=== PATIENT | female | born 1990 | race Caucasian/White ===

== ENCOUNTER 2019-01-22 07:37 | Day surgery (SDC) | payer SELFPAY ==
[~2019-01-22 07:37] MED LIST: Dexamethasone 4 MG/ML 5 ML MDV ONE; Lactated Ringers 1,000 ML IV SCH; Lidocaine 1%/Sod Bicarbonate in NS 8.4% 1 ML Syringe IDERM PRN; Midazolam 1 MG/ML 2 ML SDV ONE; Ondansetron 4 MG/2 ML SDV ONE; Propofol 200 MG/20 ML SDV ONE; Rocuronium 50 MG/5 ML Vial ONE; Sodium Chloride 0.9% 10 ML Syringe FLUSH PRN; ceFAZolin 1 GM Vial ONE; fentaNYL 250 MCG/5 ML SDV ONE
[2019-01-22] MEDS ORDERED: Bupivacaine 0.5% 10 ML SDV ONE (07:53)
--- NOTE | 2019-01-22 07:54 | PCM.PREANE ---
Preanesthetic Assessment - Anesthesia/Transfusion/Family Hx Anesthesia History: Prior Anesthesia Without Reaction Family History of Anesthesia Reaction: No Transfusion History: No Prior Transfusion(s) - Review of Systems General: Other (obese with BMI of 39, just getting over a cold, still having a stuffy nose) Pulmonary: No Symptoms Cardiovascular: No Symptoms Gastrointestinal: No Symptoms Neurological: No Symptoms Other: Reports: Depression (post ) - Physical Assessment NPO Status Date: 01/21/19 NPO Status Time: 18:30 Weight: 92.533 kg ASA Class: 2 Mental Status: Alert & Oriented x3 Airway Class: Mallampati = 2 Dentition: Reports: Normal Dentition Thyro-Mental Finger Breadths: 3 Mouth Opening Finger Breadths: 3 ROM/Head Extension: Full Lungs: Clear to Auscultation, Normal Respiratory Effort Cardiovascular: Regular Rate, Regular Rhythm - Allergies Allergies/Adverse Reactions: Allergies Allergy/AdvReac Type Severity Reaction Status Date / Time doxycycline Allergy Hives Verified 01/21/19 08:56 Sulfa (Sulfonamide Allergy Hives Verified 01/21/19 08:56 Antibiotics) sulfamethoxazole Allergy Hives Verified 01/21/19 08:56 [From Bactrim] trimethoprim [From Bactrim] Allergy Hives Verified 01/21/19 08:56 - Blood Blood Available: No Product(s) Available: None - Anesthesia Plan Pre-Op Medication Ordered: None - Acknowledgements Anesthesia Type Planned: General Anesthesia Pt an Appropriate Candidate for the Planned Anesthesia: Yes Alternatives and Risks of Anesthesia Discussed w Pt/Guardian: Yes Pt/Guardian Understands and Agrees with Anesthesia Plan: Yes PreAnesthesia Questionnaire HEENT History: Reports: None Cardiovascular History: Reports: Hypertension, Other (See Below) Other Cardiovascular History: PREECLAMPSIA Respiratory History: Reports: None Gastrointestinal History: Reports: None Genitourinary History: Reports: None 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: Other OB/BYN History: , PREECLAMPSIA, FIBROCYSTIC BREAST Neurological History: Reports: None Psychiatric History: Reports: Depression, Other (See Below) Other Psychiatric History: DEPRESSION Endocrine/Metabolic History: Reports: None Hematologic History: Reports: None Immunologic History: Reports: None Oncologic (Cancer) History: Reports: None Dermatologic History: Reports: None - Past Surgical History Head Surgeries/Procedures: Reports: None HEENT Surgical History: Reports: Adenoidectomy, Oral Surgery, Tonsillectomy Cardiovascular Surgical History: Reports: None Respiratory Surgical History: Reports: None GI Surgical History: Reports: None Female Surgical History: Reports: None Male Surgical History: Reports: None Endocrine Surgical History: Reports: None Neurological Surgical History: Reports: None Musculoskeletal Surgical History: Reports: Carpal Tunnel Other Musculoskeletal Surgeries/Procedures:: worse on left Oncologic Surgical History: Reports: None Dermatological Surgical History: Reports: None - SUBSTANCE USE Smoking Status *Q: Never Smoker Recreational Drug Use History: No - CURRENT (IN HOUSE) MEDS Current Meds: Current Medications Lactated Ringer's (Ringers, Lactated) 1,000 mls @ 125 mls/hr IV ASDIRECTED LUIS EDUARDO Stop: 01/22/19 23:00 Influenza Virus Vaccine (Pharmacy To Dose - Influenza Vaccine) 0 each IM ONETIME ONE Stop: 01/22/19 09:01 Influenza Virus Vaccine (Fluzone Quad [id number] Syringe) 60 mcg IM .ONCE ONE Stop: 01/22/19 12:01 Lidocaine/Sodium Bicarbonate (Buffered Lidocaine 1% In Ns 8.4%) 0.25 ml IDERM ONETIME PRN PRN Reason: Prior to IV Start Stop: 01/22/19 18:00 Sodium Chloride (Saline Flush) 10 ml FLUSH ASDIRECTED PRN PRN Reason: Keep Vein Open Stop: 01/22/19 18:00 Discontinued Medications Cefazolin Sodium (Ancef) Confirm Administered Dose 2 gm .ROUTE .STK-MED ONE Stop: 01/22/19 07:03 Dexamethasone (Dexamethasone) Confirm Administered Dose 20 mg .ROUTE .STK-MED ONE Stop: 01/22/19 07:03 Fentanyl (Sublimaze) Confirm Administered Dose 250 mcg .ROUTE .STK-MED ONE Stop: 01/22/19 07:04 Midazolam HCl (Versed 1 Mg/Ml) Confirm Administered Dose 2 mg .ROUTE .STK-MED ONE Stop: 01/22/19 07:04 Ondansetron HCl (Zofran) Confirm Administered Dose 4 mg .ROUTE .STK-MED ONE Stop: 01/22/19 07:03 Propofol (Diprivan 20 Ml) Confirm Administered Dose 200 mg .ROUTE .STK-MED ONE Stop: 01/22/19 07:04 Rocuronium Crenshaw (Zemuron) Confirm Administered Dose 50 mg .ROUTE .STK-MED ONE Stop: 01/22/19 07:03
--- NOTE | 2019-01-22 08:06 | PCM.OPNOTE ---
- General Post-Op/Procedure Note Date of Surgery/Procedure: 01/22/19 Operative Procedure(s): Laparoscopic removal of right adnexal cyst (appeared to be origininating inferior to fallopian tube, did not seem to connect with ovary ) and right salpingectomy Findings: Laparoscopic evaluation shows a large, at least 10 cm, fluid filled cyst filling the pelvis. Initially very difficult to tell where cyst originating. Once drained it was able to be seen that ovary is separate from cyst cavity. Cyst cavity inferior to fallopian tube and distorting/involving fallopian tube and fimbriae. Normal appearance of right ovary. Normal appearance of the left fallopian tube and ovary. Normal appearance of the uterus. Pre Op Diagnosis: Adnexal cyst Post-Op Diagnosis: Adnexal cyst- appears to be paratubal cyst Anesthesia Technique: General ET Tube Primary Surgeon: Xochitl Mcfarland Secondary Surgeon: Nneka Diane Anesthesia Provider: Kaitlin Brito Reason Compound Filler Was Necessary: BMI of patient. Speed/safety of procedure. Pathology: Cyst wall/cavity and right fallopian tube sent to pathology for further evaluation Fluid Replacement, Intraop: 1,600 Output, Urine Amount: 160 EBL in mLs: 10 Complications: None Condition: Good Free Text/Narrative:: The risks, benefits, indications, potential complications, and alternatives were explained to the patient and informed consent obtained. The patient was taken to the Operating Room where general anesthesia was induced without complication. The patient was placed in dorsal lithotomy with Logan Stirrups. The patient was then prepped and draped in the usual sterile fashion. A sterile bivalve speculum was placed into the vagina and the anterior lip of the cervix was grasped with a single tooth tenaculum. A Vigilent uterine manipulator was then advanced into the cervix and attached to the cervix to allow uterine manipulation throughout the procedure. The single tooth tenaculum and speculum were removed from the vagina. Catheter placed into the bladder. Attention was then turned to the patients abdomen where a Veress needle was inserted into the abdomen while tenting the abdominal wall. Intraabdominal placement was confirmed with a drop test using a saline filled syringe and low intraabdominal pressure on low flow. A vertical infraumbilical incision was made in the umbilical fold and the 5 mm blunt trocar was inserted with the 5 mm laparoscope inserted through the trocar for direct visualization of abdominal entry through the clear view lens. Once intraabdominal placement was confirmed, the blunt obturator was removed and the laparoscope was inserted and exam of the patient's abdomen revealed the findings detailed above. The patient was placed in Trendelenburg position. Attention was turned to placement of the accessory ports. Both ports were placed approximately 10 cm lateral and 2-3 cm below the level of the first incision. A 5 mm skin incision was made in the left lower quadrant and a 5 mm trocar was inserted into the abdomen under direct visualization with care to avoid the abdominal wall vasculature. A 10 mm skin incision in the right lower quadrant. A 10 mm trocar was inserted into the abdomen under direct visualization with care to avoid the abdominal wall vasculature. Adnexal cyst noted to be filling the pelvis. Not able to manipulate to determine origin. Not able to see surrounding gynecologic structures. Cautery pen used to make line across cyst releasing about 300 cc of clear fluid. After this was done could see that there was normal appearance of the right ovary and that cyst seemed to be inferior to fallopian tube and distorting fallopian tube/ fimbria. Initially LigaSure used to cauterize and open cyst cavity in attempt to preserve fallopian tube. This was unsuccessful given distortion and involvement of fimbria. Given concern for abnormal appearance of tube, inability to separate cyst from fallopian tube without significant trauma, and concern fallopian tube would cause increased risk of ectopic decision made to remove fallopian tube along with cyst. LigaSure used to cauterize and transect along the mesosalpinx from fimbria to the uterine cornua. Once fallopian tube and cyst free from surrounding structures they were taken out in a piecemeal fashion from the 10 mm port. Hemostasis noted of dissection site. Next, 10 mm port removed and the garima parry inlet closure device was inserted into the abdomen. Fascia of the 10 mm port closed with an interrupted suture of 0 Vicryl. The left lower quadrant trocar was then removed under direct visualization. The pneumoperitoneum was allowed to escape. The umbilical trocar was removed and lastly the camera was removed from the abdomen under direct visualization to confirm no herniation into the port site. 0.25% Marcaine was injected into the subcutaneous tissue of all skin incisions for local anesthesia. The skin incisions were re-approximated with 4-0 Monocryl in a running subcuticular fashion and sealed with Dermabond. Vigilent manipulator then removed. Polyp forceps placed into the cervical canal in attempt to remove potential polyp noted on the ultrasound. No polyp encountered. Silver nitrate applied to [place] site for hemostasis. Catheter them removed as well. The patient was awakened and taken to the Recovery Room in stable condition.
[2019-01-22] MEDS ORDERED: Lactated Ringers 1,000 ML ONE (08:07)
[2019-01-22] MEDS ORDERED: Ketorolac 30 MG/ML SDV ONE (08:08)
[2019-01-22] MEDS ORDERED: HYDROmorphone 0.5 MG/0.5 ML Syringe ONE (08:44)
[2019-01-22] MEDS ORDERED: Neostigmine Methylsulfate 1 MG/ML 5 ML Syringe ONE (09:00)
[2019-01-22] MEDS ORDERED: fentaNYL 100 MCG/2 ML SDV ONE (09:30)
[2019-01-22] MEDS ORDERED: fentaNYL 100 MCG/2 ML SDV IVPUSH PRN (10:15)
[2019-01-22] MEDS ORDERED: HYDROmorphone 0.5 MG/0.5 ML Syringe IVPUSH PRN (10:15)
--- NOTE | 2019-01-22 10:15 | PCM.POSTAN ---
POST ANESTHESIA ASSESSMENT - MENTAL STATUS Mental Status: Alert, Oriented - VITAL SIGNS Vital Signs: Last Vital Signs Temp 36.9 C 01/22/19 07:45 Pulse 92 01/22/19 07:45 Resp 16 01/22/19 07:45 BP 149/84 H 01/22/19 07:45 Pulse Ox 98 01/22/19 07:45 - RESPIRATORY Respiratory Status: Respiratory Rate WNL, Airway Patent, O2 Saturation Stable, Supplemental Oxygen - CARDIOVASCULAR CV Status: Pulse Rate WNL, Blood Pressure Stable - GASTROINTESTINAL GI Status: No Symptoms - PAIN Pain Score: 0 - POST OP HYDRATION Hydration Status: Adequate & Stable
[2019-01-22] MEDS ORDERED: Acetaminophen/HYDROcodone 325-5 MG Tab PO PRN (11:17)
--- NOTE | 2019-01-22 11:39 | PCM48HPAN ---
Post Anesthesia Note - EVALUATION WITHIN 48HRS OF ANESTHETIC Vital Signs in Normal Range: Yes Patient Participated in Evaluation: Yes Respiratory Function Stable: Yes Airway Patent: Yes Cardiovascular Function Stable: Yes Hydration Status Stable: Yes Pain Control Satisfactory: Yes Nausea and Vomiting Control Satisfactory: Yes Mental Status Recovered: Yes Vital Signs: Last Vital Signs Temp 36.3 C 01/22/19 11:00 Pulse 63 01/22/19 11:30 Resp 16 01/22/19 11:30 BP 121/73 01/22/19 11:30 Pulse Ox 97 01/22/19 11:30
[2019-01-22] MEDS ORDERED: FLU Vacc QS2019-20(6MOS+)/PF 60 MCG/0.5 ML SYRINGE IM ONE ×2 (11:55→12:00)
[2019-01-22 13:47] VITALS: BP 122/83; PULSE 72
== END 2019-01-22 13:05 | disposition home or self-care (01) ==
LOC: JD.SDS 07:37
PROVIDERS: ATTEND Obstetrics & Gynecology
DX: D28.2 Benign neoplasm of uterine tubes and ligaments (principal); I10 Essential (primary) hypertension; E66.9 Obesity, unspecified; Z68.38 Body mass index [BMI] 38.0-38.9, adult; Z88.2 Allergy status to sulfonamides; Z88.1 Allergy status to other antibiotic agents
CPT/HCPCS: 36415; 58662; 80048; 81025; 85025; 86850; 86900; 86901; 90471; 90686; J1100; J1170; J1885; J2250; J2405; J2704; J2710; J3010; J3490; J7120; 00840; G0008; J0690

== ENCOUNTER 2021-11-03 02:25 | Inpatient (IN) | payer SELFPAY ==
[2021-11-03] MEDS ORDERED: Ondansetron 4 MG/2 ML SDV IVPUSH PRN (07:10)
[2021-11-03] MEDS ORDERED: Sodium Chloride 0.9% 10 ML Syringe FLUSH PRN (07:10)
[2021-11-03] MEDS ORDERED: Nalbuphine HCl 10 MG/ 1ML Amp IVPUSH PRN (07:10)
[2021-11-03 08:13] LABS: ESTIMATED GFR 123 mL/min (>60)
[2021-11-03] MEDS: Lactated Ringers 1,000 ML IV SCH ×3 (08:33→20:06)
[2021-11-03] MEDS: Oxytocin/Lactated Ringers 10 UNIT/1,000 ML BAG IV SCH (08:33)
[2021-11-03] MEDS ORDERED: Bupivacaine/fentaNYL/NS 100 ML Bag EPIDUR PRN (10:26)
[2021-11-03] MEDS ORDERED: fentaNYL 100 MCG/2 ML SDV EPIDUR PRN (10:26)
[2021-11-03] MEDS ORDERED: diphenhydrAMINE 50 MG/ML SDV IVPUSH PRN (10:26)
[2021-11-03] MEDS ORDERED: ePHEDrine 50 MG/ML SDV IVPUSH PRN (10:26)
[2021-11-03] MEDS ORDERED: Oxytocin/Lactated Ringers 10 UNIT/1,000 ML BAG IV SCH (15:45)
[2021-11-03] MEDS: Sodium Chloride 0.9% 10 ML Syringe FLUSH SCH (19:58)
[2021-11-04] MEDS ORDERED: ePHEDrine 50 MG/ML SDV ONE
[2021-11-04] MEDS ORDERED: Bupivacaine 0.25% 10 ML SDV ONE ×3
[2021-11-04] MEDS: Sodium Chloride 0.9% 10 ML Syringe FLUSH SCH (01:32)
[2021-11-04] MEDS ORDERED: Docusate Sodium 100 MG Cap PO PRN (02:51)
[2021-11-04] MEDS ORDERED: Acetaminophen 325 MG Tab PO PRN (02:51)
[2021-11-04] MEDS ORDERED: Benzocaine/Menthol 20%-0.5% Spray 78 GM Cannister TOP PRN (02:51)
[2021-11-04] MEDS ORDERED: Witch Hazel Medicated Pads 40/Jar TOP PRN (02:51)
[2021-11-04] MEDS: Oxytocin/Lactated Ringers 10 UNIT/1,000 ML BAG IV SCH (02:52)
[2021-11-04] MEDS: Ibuprofen 600 MG Tab PO PRN ×2 (08:39→20:39)
[2021-11-04] MEDS ORDERED: Magnesium Hydroxide 400 MG/5 ML Susp 30 ML Cup PO ONE (22:48)
[2021-11-05] MEDS: Ibuprofen 600 MG Tab PO PRN ×2 (05:59→14:13)
[2021-11-05 10:09] VITALS: BP 128/85; PULSE 81
== END 2021-11-05 16:34 | disposition home or self-care (01) | DRG 807 ==
LOC: JD.OB 02:25 → OBSVTOIN 11-04 02:25 → JD.OB 11-04 02:42
PROVIDERS: ADMIT Obstetrics & Gynecology; ATTEND Obstetrics & Gynecology
PROC: 10E0XZZ Delivery of Products of Conception, External Approach (ICD-10-PCS; principal; 2021-11-04)
PROC: 10907ZC Drainage of Amniotic Fluid, Therapeutic from Products of Conception, Via Natural or Artificial Opening (ICD-10-PCS; 2021-11-04)
PROC: 3E0R3BZ Introduction of Anesthetic Agent into Spinal Canal, Percutaneous Approach (ICD-10-PCS; 2021-11-04)
PROC: 00HU33Z Insertion of Infusion Device into Spinal Canal, Percutaneous Approach (ICD-10-PCS; 2021-11-04)
DX: O11.4 Pre-existing hypertension with pre-eclampsia, complicating childbirth (principal); Z37.0 Single live birth; Z3A.37 37 weeks gestation of pregnancy; O99.214 Obesity complicating childbirth; E66.9 Obesity, unspecified; O99.344 Other mental disorders complicating childbirth; F32.A Depression, unspecified
CPT/HCPCS: 01967; 36415; 51702; 59025; 59409; 82565; 82570; 84156; 84450; 84460; 85027; 86592; 86850; 86900; 86901; A9270-GY; C1726; J2590; J3010; J3490; J7120